=== PATIENT | female | born 1995 | race American Indian/Alaskan Native ===

== ENCOUNTER 2019-10-28 14:52 | Emergency (ER) | payer SELFPAY ==
[2019-10-28] MEDS ORDERED: ONDANSETRON 4 MG ODT TAB PO ONE (15:26)
--- NOTE | 2019-10-28 15:29 | Emergency Department Report ---
ED Abdominal Pain HPI - General Chief Complaint: Abdominal Pain Stated Complaint: ABD PAIN Time Seen by Provider: 10/28/19 15:20 Source: patient, EMS Mode of arrival: Wheelchair Limitations: No Limitations - History of Present Illness Initial Comments: 24-year-old -[place] female presents to the emergency room complaining of epigastric abdominal pain, diarrhea, vomiting started last night. Patient states that she had eaten a [employer] chicken sandwich and that is when she began to have discomfort in vomiting with diarrhea. Patient denies any fever chills. Patient reports that the pain is crampy. She took ibuprofen last night with no help. MD Complaint: abdominal pain -: Last night Location: epigastric Radiation: none Severity scale (0 -10): 10 Quality: cramping Consistency: constant Improves With: nothing Worsens With: nothing Context: possible food poisoning Associated Symptoms: nausea, vomiting, diarrhea - Related Data LMP Date: 10/27/19 Allergies Allergy/AdvReac Type Severity Reaction Status Date / Time No Known Allergies Allergy Unverified 10/28/19 14:53 ED Review of Systems ROS: Stated complaint: ABD PAIN Other details as noted in HPI Comment: All other systems reviewed and negative Gastrointestinal: abdominal pain, nausea, vomiting, diarrhea ED Past Medical Hx - Past Medical History Previous Medical History?: No - Surgical History Past Surgical History?: No - Social History Smoking Status: Never Smoker Substance Use Type: None ED Physical Exam - General Limitations: No Limitations General appearance: alert, in distress - Head Head exam: Present: atraumatic, normocephalic - Eye Eye exam: Present: normal appearance - ENT ENT exam: Present: mucous membranes moist - Neck Neck exam: Present: normal inspection - Respiratory Respiratory exam: Present: normal lung sounds bilaterally. Absent: respiratory distress - Cardiovascular Cardiovascular Exam: Present: regular rate, normal rhythm. Absent: systolic murmur, diastolic murmur, rubs, gallop - GI/Abdominal GI/Abdominal exam: Present: soft, distended. Absent: tenderness - Neurological Exam Neurological exam: Present: alert, oriented X3 - Psychiatric Psychiatric exam: Present: normal affect, normal mood - Skin Skin exam: Present: warm, dry, intact, normal color. Absent: rash ED Course Vital Signs 10/28/19 14:57 Temperature 97.6 F Pulse Rate 74 Respiratory 20 Rate Blood Pressure 136/68 O2 Sat by Pulse 100 Oximetry ED Medical Decision Making - Medical Decision Making 24-year-old -[place] female presents to the emergency room complaining of epigastric abdominal pain, diarrhea, vomiting started last night. Patient states that she had eaten a [employer] chicken sandwich and that is when she began to have discomfort in vomiting with diarrhea. Patient denies any fever chills. Patient reports that the pain is crampy. She took ibuprofen last night with no help. Critical care attestation.: If time is entered above; I have spent that time in minutes in the direct care of this critically ill patient, excluding procedure time. ED Disposition Condition: Stable Instructions: Abdominal Pain (ED)
[2019-10-28 16:05] LABS: Bilirubin,Urine NEG (Negative); Blood,Urine MOD (Negative); Color,Urine Yellow (Yellow); Mucus,Urine 3+ /HPF; Urobilinogen,Urine < 2.0 mg/dL (<2.0)
[2019-10-28] MEDS ORDERED: traMADol 50 MG TAB PO ONE (16:05)
[2019-10-28 16:36] LABS: Hematocrit 40.3 % (30.3-42.9); Hemoglobin 13.5 gm/dl (10.1-14.3); Mean Corpuscular HGB Conc 34 % (30-34); Mean Corpuscular Volume 84 fl (79-97); Platelet Count 386 K/mm3 (140-440); Red Blood Count 4.81 M/mm3 (3.65-5.03); Red Cell Distribution Width 15.2 % (13.2-15.2)
[2019-10-28 16:42] LABS: Alanine Aminotransferase 17 units/L (7-56); Albumin 4.6 g/dL (3.9-5); BUN/Creatinine Ratio 20; Blood Urea Nitrogen 12 mg/dL (7-17); Calcium 9.9 mg/dL (8.4-10.2); Hemolysis Index 6
[2019-10-28] MEDS ORDERED: HYOSCYAMINE SUBL 0.125 MG TAB SL ONE (16:46)
[2019-10-28 17:18] LABS: Basophils % (Manual) 0 % (0.0-1.8); Eosinophils % (Manual) 0 % (0.0-4.3); RBC Morphology Normal; Total Cells Counted 100
[2019-10-28] MEDS ORDERED: diphenhydrAMINE 25 MG/10 ML ORAL LIQUID PO STA (17:54)
[2019-10-28] MEDS ORDERED: LIDOCAINE VISCOUS 2% 15 ML ORAL LIQD PO STA (17:54)
[2019-10-28] MEDS ORDERED: HYOSCYAMINE SUBL 0.125 MG TAB SL STA (17:54)
[2019-10-28] MEDS ORDERED: ALUM-MAG HYDROXIDE-SIMETHICONE 200-200-20MG/5ML ORAL LIQD 30 ML PO STA (17:54)
[2019-10-30 12:42] VITALS: BP 136/68
== END 2019-10-28 18:20 | disposition home or self-care (01) ==
LOC: ED 14:52
DX: R10.13 Epigastric pain (principal); R19.7 Diarrhea, unspecified; R11.10 Vomiting, unspecified
CPT/HCPCS: 36415; 80053; 81001; 83690; 85007; 85025; 87086; Q0162; Q0163